=== PATIENT | female | born 2000 | race African-American/Black ===

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

== ENCOUNTER 2018-01-12 02:35 | Emergency (ER) | payer OTHER ==
[~2018-01-12] VITALS: Ht 167.6 cm; Wt 119.0 kg
[2018-01-12] MEDS ORDERED: TRAMADOL HCL50 MG PO (02:56)
[2018-01-12] MEDS ORDERED: ACETAMINOPHEN500 M1 PO (02:56)
[2018-01-12 03:00] VITALS: BP 140/81
== END 2018-01-12 03:10 | disposition home or self-care (01) ==
LOC: ED 02:35
DX: S16.1XXA Strain of muscle, fascia and tendon at neck level, initial encounter (principal); X58.XXXA Exposure to other specified factors, initial encounter

== ENCOUNTER 2018-04-09 18:44 | Emergency (ER) | payer OTHER ==
[~2018-04-09] VITALS: Ht 167.6 cm; Wt 109.0 kg
[~2018-04-09 18:44] MED LIST changes: +ACETAMINOPHEN500 M1 PO; +TRAMADOL HCL50 MG PO
[2018-04-09] MEDS ORDERED: NAPROSYN500 MG PO (19:43)
[2018-04-09 19:48] VITALS: BP 128/72
== END 2018-04-09 19:53 | disposition home or self-care (01) ==
LOC: ED 18:44
DX: S63.501A Unspecified sprain of right wrist, initial encounter (principal); S63.91XA Sprain of unspecified part of right wrist and hand, initial encounter; M79.641 Pain in right hand

== ENCOUNTER 2018-05-01 06:52 | Emergency (ER) | payer OTHER ==
[~2018-05-01] VITALS: Ht 167.6 cm; Wt 117.8 kg
[~2018-05-01 06:52] MED LIST changes: +NAPROSYN500 MG PO
[2018-05-01 09:01] VITALS: BP 126/77
== END 2018-05-01 09:05 | disposition home or self-care (01) ==
LOC: ED 06:52
DX: R51 Headache (principal); R11.0 Nausea; R09.89 Other specified symptoms and signs involving the circulatory and respiratory systems

== ENCOUNTER → 2018-06-09 | Emergency (ER) | payer MEDICAID ==
[~2018-06-09] VITALS: Ht 167.6 cm; Wt 122.0 kg
[2018-06-09 01:46] LABS: HEMATOCRIT 36.2 % (37.0-47.0); HEMOGLOBIN 11.8 g/dl (12.0-16.0); IMMATURE GRANULOCYTES 0.3 % (0.0-5.0); MEAN CELL VOLUME 82.5 fL CALC (80.0-100.0); MEAN CORPUSCULAR HGB 26.9 pG CALC (26.0-32.0); MEAN CORPUSCULAR HGB CONC 32.6 g/L CALC (32.0-36.0); NEUT# 3.92 thou/uL (2.00-7.15); RED BLOOD COUNT 4.39 mill/uL (4.20-5.60); RED CELL DISTRI WIDTH 15.2 % (11.5-15.5)
[2018-06-09 01:49] LABS: URINE BILIRUBIN - DIPSTICK NEGATIVE (NEGATIVE); URINE BLOOD DIPSTICK NEGATIVE (NEGATIVE); URINE COLOR YELLOW; URINE GLUCOSE - DIPSTICK NEGATIVE (NEGATIVE); URINE KETONE NEGATIVE (NEGATIVE); URINE NITRITE - DIPSTICK NEGATIVE (Negative); URINE PROTEIN - DIPSTICK NEGATIVE (NEG-TRACE)
[2018-06-09 01:51] LABS: URINE LEUK ESTERASE MODERATE (NEGATIVE)
[2018-06-09 01:57] VITALS: BP 141/76
[2018-06-09 02:00] LABS: URINE BACTERIA MANY hpf; URINE SQUAMOUS EPITHELIAL CELL FEW EPI/hpf (0-FEW)
[2018-06-09 02:03] LABS: ALBUMIN 4.1 g/dL (3.2-5.0); ALKALINE PHOSPHATASE 89 u/l (38-126); AMYLASE 66 u/l (30-110); ANION GAP 15 (6-22 (CALC)); BILIRUBIN, TOTAL 0.4 mg/dL (0.0-1.4); BUN 13 mg/dL (8-21); BUN/CREATININE RATIO 25 (12-20 (CALC)); CARBON DIOXIDE 24 mmol/l (22-30); CHLORIDE 106 mmol/l (95-108); CREATININE 0.5 mg/dL (0.5-1.0); GFR > 60 ML/MIN (>=60 (CALC)); GFR FOR AFR.AMER. > 60 ML/MIN (>=60 (CALC)); LIPASE 71 u/l (23-300); POTASSIUM 4.1 mmol/l (3.5-5.1); SGOT/AST 17 u/l (14-36); SODIUM 141 mmol/l (137-146); TOTAL PROTEIN 7.9 g/dL (6.3-8.2)
== END | disposition home or self-care (01) ==
LOC: ED 00:46
PROVIDERS: Emergency Medicine
DX: N39.0 Urinary tract infection, site not specified (principal); R10.30 Lower abdominal pain, unspecified

== ENCOUNTER 2020-03-12 01:01 | Emergency (ER) | payer SELFPAY ==
[~2020-03-12] VITALS: Ht 167.6 cm; Wt 131.8 kg
[2020-03-12] MEDS ORDERED: PHENTERMINE37.5 MG PO (01:21)
[2020-03-12] MEDS ORDERED: ORPHENADRINE100 MG PO (01:57)
[2020-03-12] MEDS ORDERED: MOTRIN400 MG/TAB PO (01:57)
[2020-03-12 02:30] VITALS: BP 109/63
== END 2020-03-12 02:35 | disposition home or self-care (01) | DRG 552 ==
LOC: ED 01:01
DX: M54.6 Pain in thoracic spine (principal)

== ENCOUNTER 2020-04-28 10:50 | Emergency (ER) | payer SELFPAY ==
[~2020-04-28] VITALS: Ht 167.6 cm; Wt 126.4 kg
[~2020-04-28 10:50] MED LIST changes: +MOTRIN400 MG/TAB PO; +ORPHENADRINE100 MG PO; +PHENTERMINE37.5 MG PO
[2020-04-28] MEDS ORDERED: TAM75CAP PO (13:18)
[2020-04-28 13:30] VITALS: BP 129/74
== END 2020-04-28 13:30 | disposition home or self-care (01) | DRG 866 ==
LOC: ED 10:50
DX: B34.9 Viral infection, unspecified (principal); Z20.828 Contact with and (suspected) exposure to other viral communicable diseases

== ENCOUNTER 2020-11-17 11:19 | Emergency (ER) | payer BC, OTHER ==
[~2020-11-17] VITALS: Ht 167.6 cm; Wt 135.5 kg
[~2020-11-17 11:19] MED LIST changes: +TAM75CAP PO
[2020-11-17 12:17] LABS: HEMATOCRIT 35.7 % (37.0-47.0); HEMOGLOBIN 11.8 g/dl (12.0-16.0); IMMATURE GRANULOCYTES 0.6 % (0.0-5.0); MEAN CELL VOLUME 83.6 fL CALC (80.0-100.0); MEAN CORPUSCULAR HGB 27.6 pG CALC (26.0-32.0); MEAN CORPUSCULAR HGB CONC 33.1 g/dL CAL (32.0-36.0); NEUT# 3.83 thou/uL (2.00-7.15); RED BLOOD COUNT 4.27 mill/uL (4.20-5.60); RED CELL DISTRI WIDTH 14.3 % (11.5-15.5)
[2020-11-17 12:33] LABS: ALBUMIN 3.6 g/dL (3.2-5.0); ALKALINE PHOSPHATASE 64 u/l (38-126); ANION GAP 11 (6-22 (CALC)); BILIRUBIN, TOTAL 0.4 mg/dL (0.0-1.4); BUN 7 mg/dL (7-17); BUN/CREATININE RATIO 17 (12-20 (CALC)); CARBON DIOXIDE 23 mmol/l (22-30); CHLORIDE 105 mmol/l (95-108); CREATININE 0.4 mg/dL (0.5-1.0); GFR > 60 ML/MIN (>=60 (CALC)); GFR FOR AFR.AMER. > 60 ML/MIN (>=60 (CALC)); LIPASE 23 u/l (23-300); POTASSIUM 3.5 mmol/l (3.5-5.1); SGOT/AST 23 u/l (14-36); SODIUM 135 mmol/l (137-146); TOTAL PROTEIN 7.7 g/dL (6.3-8.2)
[2020-11-17 12:33] LABS: URINE BILIRUBIN - DIPSTICK NEGATIVE (NEGATIVE); URINE BLOOD DIPSTICK NEGATIVE (NEGATIVE); URINE COLOR YELLOW; URINE GLUCOSE - DIPSTICK NEGATIVE (NEGATIVE); URINE KETONE NEGATIVE (NEGATIVE); URINE PROTEIN - DIPSTICK NEGATIVE (NEG-TRACE); URINE SPECIFIC GRAVITY >=1.030
[2020-11-17 12:37] LABS: URINE LEUK ESTERASE SMALL (NEGATIVE); URINE NITRITE - DIPSTICK NEGATIVE (Negative)
[2020-11-17 12:45] LABS: URINE SQUAMOUS EPITHELIAL CELL MANY EPI/hpf (0-FEW)
[2020-11-17] MEDS ORDERED: OMNI-PAC300 MG PO (12:50)
[2020-11-17 13:08] VITALS: BP 109/76
[2020-11-17 13:20] LABS: BETA-HCG, QUANT(RESULT NUMBER) 24669 mIU/mL
== END 2020-11-17 13:12 | disposition home or self-care (01) ==
LOC: ED 11:19
PROVIDERS: Family Medicine
DX: O23.41 Unspecified infection of urinary tract in pregnancy, first trimester (principal); Z3A.13 13 weeks gestation of pregnancy

== ENCOUNTER 2022-05-30 10:48 | Emergency (ER) | payer OTHER ==
[~2022-05-30] VITALS: Ht 167.6 cm; Wt 140.0 kg
[~2022-05-30 10:48] MED LIST changes: +OMNI-PAC300 MG PO
[2022-05-30 11:43] VITALS: BP 131/75
[2022-05-30 11:46] VITALS: BP 126/76
[2022-05-30 12:01] VITALS: BP 121/85
[2022-05-30] MEDS ORDERED: ZYRTEC10 MG PO (13:38)
[2022-05-30] MEDS ORDERED: ZPAK PO (13:38)
[2022-05-30 13:50] VITALS: BP 121/85
== END 2022-05-30 13:50 | disposition home or self-care (01) ==
LOC: ED 10:48
DX: J02.9 Acute pharyngitis, unspecified (principal); Z20.822 Contact with and (suspected) exposure to COVID-19

== ENCOUNTER 2023-01-21 12:14 | Emergency (ER) | payer OTHER ==
[~2023-01-21] VITALS: Ht 167.6 cm; Wt 140.0 kg
[~2023-01-21 12:14] MED LIST changes: +ZPAK PO; +ZYRTEC10 MG PO
[2023-01-21 14:05] VITALS: BP 125/79
== END 2023-01-21 13:43 | disposition left against medical advice (07) | DRG 951 ==
LOC: ED 12:14 → LWOBS 13:43
DX: Z53.21 Procedure and treatment not carried out due to patient leaving prior to being seen by health care provider (principal)

== ENCOUNTER 2024-01-29 17:04 | Emergency (ER) | payer OTHER ==
[~2024-01-29] VITALS: Ht 167.6 cm; Wt 118.5 kg
[2024-01-29 19:38] VITALS: BP 135/78
== END 2024-01-29 19:38 | disposition home or self-care (01) ==
LOC: ED 17:04
DX: J02.9 Acute pharyngitis, unspecified (principal); Z20.822 Contact with and (suspected) exposure to COVID-19

== ENCOUNTER 2024-07-09 23:26 | Emergency (ER) | payer SELFPAY ==
[~2024-07-09] VITALS: Ht 167.6 cm; Wt 138.0 kg
[~2024-07-09 23:26] MED LIST changes: +MOTRIN800 MG PO; +PENICILLN VK500 MG PO
[2024-07-10 00:14] LABS: URINE BLOOD DIPSTICK Large (NEGATIVE); URINE COLOR Yellow; URINE GLUCOSE - DIPSTICK Negative (NEGATIVE); URINE KETONE Trace mg/dL (NEGATIVE); URINE LEUK ESTERASE Small (NEGATIVE); URINE PROTEIN - DIPSTICK >=300 mg/dL (NEG-TRACE); URINE SPECIFIC GRAVITY >=1.030
[2024-07-10 00:15] LABS: URINE EPITHELIAL CELLS MANY EPI/hpf (0-FEW); URINE NITRITE - DIPSTICK Negative (Negative); URINE RBC >100 RBC/hpf (0-5); URINE WBC >100 WBC/hpf (0-5)
[2024-07-10 00:16] LABS: URINE BACTERIA MANY hpf
[2024-07-10] MEDS ORDERED: LIDOcaine HCl 1% (Local Anesth.) 20 ML VIAL IM STA (01:26)
[2024-07-10] MEDS ORDERED: CEFDINIR300 MG PO (01:30)
[2024-07-10] MEDS ORDERED: cefTRIAXone SODIUM 1 GM/VIAL SDV IM ONE (01:30)
[2024-07-10] MEDS ORDERED: AZITHROMYCIN 250 MG/TAB PO ONE (01:30)
[2024-07-10 01:47] VITALS: BP 134/86
== END 2024-07-10 01:50 | disposition home or self-care (01) | DRG 696 ==
LOC: ED 23:26
PROVIDERS: Internal Medicine
DX: R30.0 Dysuria (principal); Z20.2 Contact with and (suspected) exposure to infections with a predominantly sexual mode of transmission; R82.71 Bacteriuria
CPT/HCPCS: J0696